=== PATIENT | male | born 1935 | race American Indian/Alaskan Native ===

== ENCOUNTER 2021-07-06 10:06 | Emergency (ER) | payer MEDICARE ==
[~2021-07-06 10:06] MED LIST: EPINEPHrine 1 MG/10 ML SYRINGE ONE
--- NOTE | 2021-07-06 10:45 | Emergency Department Report ---
ED CPR HPI - General Stated Complaint: CARDIAC ARREST Source: EMS Mode of arrival: Stretcher Limitations: Altered Mental Status - History of Present Illness Initial Comments: 85-year-old male with COPD and dementia .presents to the hospital cardiopulmonary arrest. Family saw him on the camera 30 minutes prior to calling EMS therefore estimated last known well time 8:50 AM. Patient was found unresponsive on the floor on his inhaler. EMS at scene 3 minutes after the call at 9:21 AM. Patient was in PEA cardiopulmonary arrest. Patient intubated with a Leonidas airway. 1 dose of epinephrine provided with return of circulation. 0.5 mg of epi provided. EKG performed and transmitted showing ST elevation FL in the lateral leads. Code STEMI called prior to patient arrival to the department based on his EKG. Apparently patient arrested again in route and treated with defibrillator. Chest compressions in progress upon patient arrival at 10:06 AM Family (daughter) states patient moved here from [place] approximately 1 month ago because he was no longer able to take care of himself. His health has been deteriorating over the past week. He was recently diagnosed with COPD, a spot on his lung (with advanced imaging scheduled), and was started on a blood thinner yesterday for blood clot in his leg. For the last several days he has been more confused than usual ED Review of Systems ROS: Stated complaint: CARDIAC ARREST Other details as noted in HPI Comment: Unobtainable due to pts medical conditions ED Past Medical Hx - Past Medical History Previous Medical History?: Yes Hx Deep Vein Thrombosis: Yes Hx COPD: Yes Hx Dementia: Yes ED Physical Exam - General Limitations: Altered Mental Status, Physical Limitation - Other Other exam information: General: Unresponsive Head: Atraumatic Eyes: Pupils fixed and dilated ENT: Moist mucous membranes, pale tongue Neck: Normal appearance, no midline tenderness, Chest: No spontaneous respirations, clear to auscultation with bag CV: Pulseless, distended jugular vein Abdomen: Soft, normal bowel sounds, nontender, nondistended, no rebound or guarding Extremity: No spontaneous movement Neuro: GCS equals 3 Psych: Unresponsive Skin: Cyanosis ED Course - Reevaluation(s) Reevaluation #1: 07/06/21 Patient arrived with chest compressions in progress. Initial PEA arrest with organized rhythm. 1 dose of epinephrine provided. Patient continued to deteriorate to asystole briefly before spontaneously regaining a narrow complex organized rhythm. Very difficult to palpate pulse however, audible heartbeat with a systolic pressure of 43. While prepping to place central line and intubate patient heart rhythm once again deteriorated to asystole. At this time patient has been in arrest for least 1 hour and appears to have fixed and dilated pupils, pale tongue, and cyanosis. Time of 10:[address] Adhikari his public relations player Dr. 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 At time of arrival his total downtime estimated greater than 1 hour. Patient arrived with signs of cyanosis, pale tongue, fixed dilated pupils, and CPR in progress. Brief return of spontaneous circulation however, rhythm deteriorated to asystole. Time of 10:20 AM. Patient's daughter informed in ED Critical Care Time: Yes Critical care time in (mins) excluding proc time.: 20 Critical care attestation.: If time is entered above; I have spent that time in minutes in the direct care of this critically ill patient, excluding procedure time. ED Disposition Clinical Impression: Cardiopulmonary arrest, History of DVT (deep vein thrombosis), History of COPD Disposition: 20 Is pt being admited?: No Condition: Stable Referrals: SHELBY MCCLURE NP [Primary Care Provider] - 3-5 Days Time of Disposition: 10:40
== END 2021-07-06 14:55 ==
LOC: ED 10:06
DX: I46.9 Cardiac arrest, cause unspecified (principal); J44.9 Chronic obstructive pulmonary disease, unspecified; F03.90 Unspecified dementia, unspecified severity, without behavioral disturbance, psychotic disturbance, mood disturbance, and anxiety; Z86.718 Personal history of other venous thrombosis and embolism
CPT/HCPCS: 92950; 99285; J0171